=== PATIENT | female | born 1945 | race Caucasian/White ===

== ENCOUNTER 2016-11-04 15:58 | Emergency (ER) | payer OTHER, MEDICARE ==
[~2016-11-04 15:58] MED LIST: ASAB PO; CRESTOR20 MG PO; GLUCPH PO; PLAVIX PO; TOPXL50 PO; TYLENOL PM PO
== END 2016-11-04 16:00 | disposition home or self-care (01) ==
LOC: ER 15:58
DX: S76.011A Strain of muscle, fascia and tendon of right hip, initial encounter (principal); S66.912A Strain of unspecified muscle, fascia and tendon at wrist and hand level, left hand, initial encounter; R05 Cough; F17.200 Nicotine dependence, unspecified, uncomplicated; Z79.84 Long term (current) use of oral hypoglycemic drugs; Z79.82 Long term (current) use of aspirin; Z79.899 Other long term (current) drug therapy; V49.9XXA Car occupant (driver) (passenger) injured in unspecified traffic accident, initial encounter
CPT/HCPCS: 73130-LT; 73502-RT; 99284